=== PATIENT | female | born 1965 | race Caucasian/White ===

== ENCOUNTER 2016-10-14 12:51 | Emergency (ER) | payer OTHER ==
[2016-10-14 12:55] VITALS: BP 150/60
--- NOTE | 2016-10-14 13:09 | PHYS DOC ---
General Chief Complaint: MECHANICAL FALL Stated Complaint: NA Time Seen by MD: 12:54 Source: patient Exam Limitations: no limitations Problems: History of Present Illness Initial Comments Patient is a 51-year-old female who comes to the ED complaining of injuries from a fall. Patient states that earlier this morning she was walking down a flight of stairs , when she reached the bottom of the stairwell she missed the bottom step causing her to fall down to the next step where she rolled her left ankle inversion mechanism. States she did not fall all the way down she did not hit her head or lose consciousness she denies headache or neck pain. She complains of lateral ankle and foot pain, she was ambulatory and she iced and elevated her ankle for a short time before her came home. They're flying out the [place] later this week so her spouse convinced her to come for evaluation to rule out fracture. She denies numbness tingling weakness or radiating symptoms, she says she thinks she pulled a muscle in her back but she does not request evaluation. No other complaints. Occurred: this morning Severity: mild Injuries/Pain Location: lower extremity Context: slipped Loss of Consciousness: no loss of consciousness Modifying Factors: worse with jarring, worse with movement, improves with rest Associated Symptoms: trouble walking, other Allergies: Coded Allergies: No Known Drug Allergies (Unverified , 10/14/16) Past Medical History Medical History: no medical history Surgical History: noncontributory Social History Smoker: non-smoker Alcohol: none Drugs: none Physical Exam General Appearance: WD/WN, no apparent distress Head: no evidence of injury Ears, Nose, Mouth, Throat: hearing grossly normal, no evidence of ENT injury Neck: non-tender, full range of motion Cardiovascular/Respiratory: normal peripheral pulses, no respiratory distress Gastrointestinal: non tender, soft Back: no CVA tenderness, no vertebral tenderness Extremities: other (left foot without evidence of trauma, slight tenderness at the ATF ligament and the lateral foot no swelling or ecchymosis no palpable bony deformity or tenderness ligaments and tendons were intact) 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 PHYSICIAN: KATE NG DO REASON: trauma/pain PROCEDURE: FOOT LEFT 3V Left foot, 3 views, 10/14/2016: History: Trauma, foot pain No fracture or dislocation is identified. There is mild spurring at the talonavicular articulation. IMPRESSION: No acute bony abnormality is detected. DICTATED AND SIGNED BY: LUKE HUFF MD DATE: 10/14/16 3109 CC: KAREN TERESA MD; KATE NG DO ~ Departure Time of Disposition: 13:25 Disposition: 01 HOME, SELF-CARE Diagnosis: left midfoot sprain, fall Condition: GOOD Patient Instructions: Foot Sprain-Brief, RICE - Routine Care for Injuries, Easy -to-Read Additional Instructions: RICE, see handout. Wear the postop shoe and Garfield wrap as needed for symptom control. [id number] Tylenol and/or ibuprofen as needed. Follow-up with her doctor in 2 weeks if not better. Return to the ED with new or changing symptoms KATE NG DO Oct 14, 2016 13:09
--- NOTE | 2016-10-14 13:20 | RAD ---
Left foot, 3 views, 10/14/2016: History: Trauma, foot pain No fracture or dislocation is identified. There is mild spurring at the talonavicular articulation. IMPRESSION: No acute bony abnormality is detected.
== END 2016-10-14 14:06 | disposition home or self-care (01) ==
LOC: ER 12:51
DX: S93.402A Sprain of unspecified ligament of left ankle, initial encounter (principal); W10.8XXA Fall (on) (from) other stairs and steps, initial encounter; Y93.01 Activity, walking, marching and hiking; Y99.8 Other external cause status; Y92.89 Other specified places as the place of occurrence of the external cause
CPT/HCPCS: 73630; 99284

== ENCOUNTER 2019-11-08 21:23 | Emergency (ER) | payer OTHER ==
[~2019-11-08] VITALS: Ht 157.5 cm; Wt 65.7 kg
[2019-11-08 21:58] LABS: BASO # 0.1 x10^3/uL (0.0-0.2); BASO % 1 % (0-3); EOS # 0.3 x10^3/uL (0.0-0.7); EOS % 4 % (0-3); HEMATOCRIT 42.2 % (36.0-47.0); HEMOGLOBIN 14.1 g/dL (12.0-15.5); LYMPH # 1.9 x10^3/uL (1.0-4.8); LYMPH % 25 % (24-48); MEAN CORPUSCULAR HEMOGLOBIN 31 pg (25-35); MEAN CORPUSCULAR HGB CONC 33 g/dL (31-37); MEAN CORPUSCULAR VOLUME 92 fL (79-100); MONO # 0.7 x10^3/uL (0.0-1.1); MONO % 9 % (0-9); NEUT # 4.7 x10^3uL (1.8-7.7); NEUT % 61 % (31-73); PLATELET COUNT 334 x10^3/uL (140-400); RED BLOOD COUNT 4.61 x10^6/uL (3.50-5.40); RED CELL DISTRIBUTION WIDTH 13.1 % (11.5-14.5); WHITE BLOOD COUNT 7.7 x10^3/uL (4.0-11.0)
--- NOTE | 2019-11-08 22:01 | RAD ---
Exam: Chest one INDICATION: Chest pain TECHNIQUE: Frontal view of the chest Comparisons: None FINDINGS: The cardiomediastinal silhouette and pulmonary vessels are within normal limits. The lung and pleural spaces are clear. IMPRESSION: No acute cardiopulmonary process. Electronically signed by: Linda Locke MD (11/08/2019 9:58 PM) [id number]
[2019-11-08 22:13] LABS: CALCIUM 9.2 mg/dL (8.5-10.1); POTASSIUM 3.5 mmol/L (3.5-5.1)
[2019-11-08] MEDS ORDERED: FAMOTIDINE 20 MG/2 ML VIAL IVP ONE (22:15)
--- NOTE | 2019-11-08 22:16 | PHYS DOC ---
Past History Past Medical History: Anemia, Anxiety, Depression, GERD, Other Past Surgical History: Alcohol Use: None Drug Use: None General Adult EDM: Chief Complaint: CHEST PAIN HPI: HPI: 54-year-old female presents with chest pain. She has been having intermittent chest pain most of the day. She had epigastric pain the last couple of days. Today it moved up in the left side of her chest and she had an unusual feeling in her left arm. She is never had this before. She realizes that she is over 50 and was concerned this could be something serious. She has a family history of heart disease, but no personal history. She had a stress test "a long time ago" that was reported to be normal. She denies fever or chills. Denies significant history of GERD. Review of Systems: Review of Systems: Constitutional: Denies fever or chills Eyes: Denies change in visual acuity HENT: Denies nasal congestion or sore throat Respiratory: Denies cough or shortness of breath Cardiovascular: Chest pain GI: Denies abdominal pain, nausea, vomiting, bloody stools or diarrhea : Denies dysuria Musculoskeletal: Denies back pain or joint pain Integument: Denies rash Neurologic: Denies headache, focal weakness or sensory changes Endocrine: Denies polyuria or polydipsia Lymphatic: Denies swollen glands Psychiatric: Denies depression or anxiety Heart Score: HEART Score for Chest Pain: HEART Score for Chest Pain Response (Comments) Value History Slighlty/Non-Suspicious 0 ECG Normal 0 Age >45 - < 65 1 Risk Factors No Risk Factors 0 Troponin < Normal Limit 0 Total 1 Risk Factors: Risk Factors: DM, Current or recent (<one month) smoker, HTN, HLP, family history of CAD, obesity. Risk Scores: Score 0 - 3: 2.5% MACE over next 6 weeks - Discharge Home Score 4 - 6: 20.3% MACE over next 6 weeks - Admit for Clinical Observation Score 7 - 10: 72.7% MACE over next 6 weeks - Early Invasive Strategies Allergies: Allergies: Allergies Coded Allergies Type Severity Reaction Last Updated Verified No Known Drug Allergies 10/14/16 No Physical Exam: PE: Constitutional: Well developed, well nourished, no acute distress, non-toxic appearance. [] HENT: Normocephalic, atraumatic, bilateral external ears normal, oropharynx moist, no oral exudates, nose normal. [] Eyes: PERRLA, EOMI, conjunctiva normal, no discharge. [] Neck: Normal range of motion, no tenderness, supple, no stridor. [] Cardiovascular: Heart rate regular rhythm, no murmur [] Lungs & Thorax: Bilateral breath sounds clear to auscultation [] Abdomen: Bowel sounds normal, soft, no tenderness, no masses, no pulsatile masses. [] Skin: Warm, dry, no erythema, no rash. [] Back: No tenderness, no CVA tenderness. [] Extremities: No tenderness, no cyanosis, no clubbing, ROM intact, no edema. [] Neurologic: Alert and oriented X 3, normal motor function, normal sensory function, no focal deficits noted. [] Psychologic: Affect normal, judgement normal, mood normal. [] Current Patient Data: Labs: Laboratory Tests Test 11/08/19 21:35 White Blood Count 7.7 x10^3/uL (4.0-11.0) Red Blood Count 4.61 x10^6/uL (3.50-5.40) Hemoglobin 14.1 g/dL (12.0-15.5) Hematocrit 42.2 % (36.0-47.0) Mean Corpuscular Volume 92 fL (79-100) Mean Corpuscular Hemoglobin 31 pg (25-35) Mean Corpuscular Hemoglobin Concent 33 g/dL (31-37) Red Cell Distribution Width 13.1 % (11.5-14.5) Platelet Count 334 x10^3/uL (140-400) Neutrophils (%) (Auto) 61 % (31-73) Lymphocytes (%) (Auto) 25 % (24-48) Monocytes (%) (Auto) 9 % (0-9) Eosinophils (%) (Auto) 4 % (0-3) H Basophils (%) (Auto) 1 % (0-3) Neutrophils # (Auto) 4.7 x10^3uL (1.8-7.7) Lymphocytes # (Auto) 1.9 x10^3/uL (1.0-4.8) Monocytes # (Auto) 0.7 x10^3/uL (0.0-1.1) Eosinophils # (Auto) 0.3 x10^3/uL (0.0-0.7) Basophils # (Auto) 0.1 x10^3/uL (0.0-0.2) Vital Signs: Vital Signs Date Time Temp Pulse Resp B/P (MAP) Pulse Ox O2 Delivery O2 Flow Rate FiO2 11/08/19 21:23 98.6 80 16 172/102 (125) 98 Room Air EKG: EKG: Sinus rhythm, rate 77, normal axis, no ST elevations or depressions. [] Radiology/Procedures: Radiology/Procedures: [] Impressions: Exam: Chest one INDICATION: Chest pain TECHNIQUE: Frontal view of the chest Comparisons: None FINDINGS: The cardiomediastinal silhouette and pulmonary vessels are within normal limits. The lung and pleural spaces are clear. IMPRESSION: No acute cardiopulmonary process. Electronically signed by: Carmelita Guthrie MD (11/08/2019 9:58 PM) [id number] DICTATED AND SIGNED BY: CARMELITA GUTHRIE MD DATE: 11/08/19 2158 CC: KAREN TERESA MD; JAZMIN COBOS DO ~ Course & Med Decision Making: Course & Med Decision Making Pertinent Labs and Imaging studies reviewed. (See chart for details) The patient's EKG is unremarkable. Her labs are unremarkable. Her troponin is negative. Her chest x-ray is unremarkable. I have given the patient 20 mg of Pepcid IV. Distance up not appear to be cardiopulmonary in nature. Her heart score is 1. The patient is safe for discharge at this time. [] Dragon Disclaimer: Dragon Disclaimer: This electronic medical record was generated, in whole or in part, using a voice recognition dictation system. Departure Departure: Impression: Primary Impression: Chest pain Qualified Codes: R07.9 - Chest pain, unspecified Disposition: HOME/RESIDENCE PRIOR TO ADM Condition: STABLE Referrals: KAREN TERESA MD (PCP) Patient Instructions: Chest Pain (Nonspecific), [id number] Justification of Admission: Justification of Admission: Justification of Admission Dx: N/A JAZMIN COBOS DO Nov 08, 2019 22:16
[2019-11-08 22:18] LABS: ALBUMIN 3.7 g/dL (3.4-5.0); ALBUMIN/GLOBULIN RATIO 1.1 (1.0-1.7); TOTAL BILIRUBIN 0.2 mg/dL (0.2-1.0); TOTAL PROTEIN 7.2 g/dL (6.4-8.2)
[2019-11-08 22:45] VITALS: BP 157/91
--- NOTE | 2019-11-09 02:45 | EKG ---
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
== END 2019-11-08 22:45 | disposition home or self-care (01) ==
LOC: ER 21:23
DX: R07.89 Other chest pain (principal); K21.9 Gastro-esophageal reflux disease without esophagitis; F41.9 Anxiety disorder, unspecified; F32.9 Major depressive disorder, single episode, unspecified; Z86.2 Personal history of diseases of the blood and blood-forming organs and certain disorders involving the immune mechanism
CPT/HCPCS: 36415; 71045; 80053; 84484; 85025; 93005; 96374; 99285; J3490

== ENCOUNTER → 2019-11-15 | Outpatient (CLI) | payer OTHER ==
[2019-11-08 22:45] VITALS: BP 157/91
--- NOTE | 2019-11-16 19:11 | RAD ---
DATE: 11/15/2019 2:30 PM EXAM: MAMMO RICARDO SCREENING BILATERAL HISTORY: Screening COMPARISON: 05/24/2015, 01/16/2018 Bilateral CC and MLO views of the breasts were performed. Bilateral breast tomosynthesis was performed in CC and MLO projections. This study was interpreted with the benefit of Computerized Aided Detection (CAD). FINDINGS: Breast Density: DENSE The breast Parenchyma is dense, which could reduce the sensitivity of mammography. Breast parenchyma level density D. No suspicious masses, microcalcifications or architectural distortion is present to suggest malignancy in either breast. The visualized axillae are unremarkable. IMPRESSION: No mammographic evidence of malignancy. BI-RADS CATEGORY: 1 NEGATIVE RECOMMENDED FOLLOW-UP: 12M 12 MONTH FOLLOW-UP Annual screening mammography is recommended, unless clinically indicated sooner based on symptoms or change in physical exam. PQRS compliance statement: Patient information was entered into a reminder system with a target due date 11/15/2020 for the next mammogram. Mammography is a sensitive method for finding small breast cancers, but it does not detect them all and is not a substitute for careful clinical examination. A negative mammogram does not negate a clinically suspicious finding and should not result in delay in biopsying a clinically suspicious abnormality. "Our facility is accredited by the [employer] Mammography Program."
== END ==
LOC: MAMMO 14:22
PROVIDERS: ATTEND Family Medicine
DX: Z12.31 Encounter for screening mammogram for malignant neoplasm of breast (principal)
CPT/HCPCS: 77063; 77067